=== PATIENT | male | born 1990 | race African-American/Black ===

== ENCOUNTER 2024-12-28 21:28 | Emergency (ER) | payer MEDICAID ==
[~2024-12-28] VITALS: Ht 182.9 cm; Wt 90.7 kg
[2024-12-28] MEDS ORDERED: CEFTRIAXONE 500 MG VIAL ONE (22:41)
[2024-12-28] MEDS ORDERED: DOXYCYCLINE HYCLATE (100 MG) 100 MG TABLET ONE (22:42)
[2024-12-28] MEDS: CEFTRIAXONE 500 MG VIAL IM ONE (22:50)
[2024-12-28] MEDS: DOXYCYCLINE HYCLATE (100 MG) 100 MG TABLET PO ONE (22:50)
[2024-12-28] MEDS ORDERED: DOXY100C2 PO (22:56)
[2024-12-28 23:40] VITALS: BP 133/87; TEMP 98.2; O2SAT 97
[2025-01-01 04:06] LABS: CHLAMYDIA TRACHOMATIS NAA Negative (Negative); NEISSERIA GONORRHOEAE NAA Negative (Negative)
== END 2024-12-29 00:37 | disposition home or self-care (01) ==
LOC: ER 22:45
DX: Z11.3 Encounter for screening for infections with a predominantly sexual mode of transmission (principal)
CPT/HCPCS: 99283; 96372; 87491; 87591; J0696

== ENCOUNTER 2025-01-06 10:51 | Emergency (ER) | payer MEDICAID ==
[~2025-01-06] VITALS: Ht 182.9 cm; Wt 90.7 kg
[~2025-01-06 10:51] MED LIST: DOXY100C2 PO
[2025-01-06 11:01] VITALS: BP 155/85; TEMP 98
[2025-01-06 11:49] VITALS: O2SAT 97
[2025-01-08 23:06] LABS: *HIV-1 RNA BY PCR <20 copies/mL (.)
== END 2025-01-06 11:49 | disposition home or self-care (01) ==
LOC: ER 10:59
DX: R21 Rash and other nonspecific skin eruption (principal); Z79.899 Other long term (current) drug therapy
CPT/HCPCS: 36415; 82962-TC; 87536